=== PATIENT | female | born 1995 | race Caucasian/White ===

== ENCOUNTER 2018-02-24 14:01 | Emergency (ER) | payer MEDICAID ==
[~2018-02-24] VITALS: Ht 157.5 cm; Wt 81.8 kg
[2018-02-24 14:36] VITALS: Ht 157.5 cm; Wt 81.8 kg
[2018-02-24 15:52] LABS: BASOPHILS 0.2 % (0-2); EOSINOPHILS 0.5 % (0-7); IMMATURE GRANULOCYTES 0.2 % (0-5); LYMPHOCYTES 19.1 % (15-50); MCH 29.1 pg (26.0-34.0); MCHC 34.1 g/dL (31.0-37.0); MCV 85.2 fL (80.0-100.0); MONOCYTES 6.7 % (2-11); NEUTROPHILS 73.3 % (40-80); PLATELET COUNT 239 10x3/uL (130-400); RBC 4.81 10x6/uL (4.00-5.40); RDW 13.4 % (11.5-14.5); WBC 8.8 10x3/uL (4.8-10.8)
[2018-02-24 15:55] LABS: APPEARANCE CLEAR (CLEAR); BILIRUBIN NEGATIVE (NEGATIVE); COLOR YELLOW (YELLOW); GLUCOSE NEGATIVE (NEGATIVE); KETONE NEGATIVE (NEGATIVE); NITRITE NEGATIVE (NEGATIVE); PROTEIN NEGATIVE (NEGATIVE); SPECIFIC GRAVITY 1.025 (1.005-1.020); UROBILINOGEN NORMAL (NORMAL)
[2018-02-24 15:58] LABS: RED CELLS - URINE 0-5 /hpf (0-5)
[2018-02-24 15:59] LABS: BACTERIA MANY /hpf (NONE SEEN); MUCUS <1+ /lpf (NONE SEEN)
[2018-02-24 16:04] LABS: HCG SERUM POSITIVE (NEGATIVE)
[2018-02-24 16:13] LABS: ALBUMIN 3.5 g/dL (3.4-5.0); ALKALINE PHOSPHATASE 59 U/L (46-116); ALT (SGPT) 16 U/L (10-68); BILIRUBIN - TOTAL 0.49 mg/dL (0.2-1.3); CALC OSMOLALITY 273 mosm/kg (275-300); CALCIUM 8.7 mg/dL (8.5-10.1); CARBON DIOXIDE 25.9 mmol/L (21.0-32.0); CHLORIDE - SERUM 103 mmol/L (98-107); CREATININE - SERUM 0.7 mg/dL (0.6-1.3); GLUCOSE 85 mg/dL (74-106); LIPASE 146 U/L (73-393); POTASSIUM - SERUM 3.4 mmol/L (3.5-5.1); PROTEIN - SERUM 7.4 g/dL (6.4-8.2); SODIUM 138 mmol/L (136-145); UREA NITROGEN 9 mg/dL (7-18); eGFR NON AFRICAN AMERICAN > 90 mL/min (90-120)
[2018-02-24] MEDS ORDERED: MACROBID100 MG PO (17:26)
[2018-02-24] MEDS ORDERED: PRENATAL COMPLE1 TAB PO (17:26)
[2018-02-24 18:08] VITALS: BP 109/66
== END 2018-02-24 18:10 | disposition home or self-care (01) ==
LOC: D.ER 14:01
PROVIDERS: Emergency Medicine
DX: Z32.01 Encounter for pregnancy test, result positive (principal); N39.0 Urinary tract infection, site not specified; R30.0 Dysuria; M54.5 Low back pain

== ENCOUNTER 2018-04-04 13:49 | Emergency (ER) | payer MEDICAID ==
[~2018-04-04] VITALS: Ht 157.5 cm; Wt 90.9 kg
[~2018-04-04 13:49] MED LIST: MACROBID100 MG PO; PRENATAL COMPLE1 TAB PO
[2018-04-04 14:02] VITALS: Ht 157.5 cm; Wt 90.9 kg
[2018-04-04 14:51] LABS: BASOPHILS 0.1 % (0-2); EOSINOPHILS 0.3 % (0-7); HEMATOCRIT 36.2 % (36.0-48.0); HEMOGLOBIN 12.4 g/dL (12-16); IMMATURE GRANULOCYTES 0.2 % (0-5); LYMPHOCYTES 20.5 % (15-50); MCH 29.5 pg (26.0-34.0); MCHC 34.3 g/dL (31.0-37.0); MEAN PLATELET VOLUME 10.8 fL (7.4-10.4); MONOCYTES 6.3 % (2-11); NEUTROPHILS 72.6 % (40-80); PLATELET COUNT 228 10x3/uL (130-400); RBC 4.21 10x6/uL (4.00-5.40); RDW 13.6 % (11.5-14.5); WBC 8.9 10x3/uL (4.8-10.8)
[2018-04-04 14:56] LABS: APPEARANCE CLEAR (CLEAR); COLOR YELLOW (YELLOW)
[2018-04-04 14:57] LABS: BILIRUBIN NEGATIVE (NEGATIVE); GLUCOSE 100 mg/dL (NEGATIVE); KETONE NEGATIVE (NEGATIVE); NITRITE NEGATIVE (NEGATIVE); PROTEIN NEGATIVE (NEGATIVE); SPECIFIC GRAVITY 1.015 (1.005-1.020); UROBILINOGEN NORMAL (NORMAL)
[2018-04-04 14:58] LABS: BACTERIA MODERATE /hpf (NONE SEEN); EPITHELIAL CELLS 0-5 /hpf (0-5); MUCUS <1+ /lpf (NONE SEEN); RED CELLS - URINE 0-5 /hpf (0-5); WHITE CELLS - URINE 0-5 /hpf (0-5)
[2018-04-04 15:12] LABS: ALBUMIN 2.8 g/dL (3.4-5.0); ALKALINE PHOSPHATASE 69 U/L (46-116); ALT (SGPT) 12 U/L (10-68); BILIRUBIN - TOTAL 0.26 mg/dL (0.2-1.3); CALC OSMOLALITY 271 mosm/kg (275-300); CALCIUM 8.6 mg/dL (8.5-10.1); CHLORIDE - SERUM 105 mmol/L (98-107); CREATININE - SERUM 0.5 mg/dL (0.6-1.3); GLUCOSE 86 mg/dL (74-106); POTASSIUM - SERUM 3.7 mmol/L (3.5-5.1); PROTEIN - SERUM 6.6 g/dL (6.4-8.2); SODIUM 137 mmol/L (136-145); UREA NITROGEN 10 mg/dL (7-18); eGFR NON AFRICAN AMERICAN > 90 mL/min (90-120)
[2018-04-04 15:31] LABS: HCG - QUANTITATIVE (MATERNAL) 33588 mIU/mL
[2018-04-04 17:14] VITALS: BP 115/70
== END 2018-04-04 17:17 | disposition home or self-care (01) ==
LOC: D.ER 13:49
PROVIDERS: Emergency Medicine
DX: O44.01 Complete placenta previa NOS or without hemorrhage, first trimester (principal); Z3A.13 13 weeks gestation of pregnancy; G10 Huntington's disease